=== PATIENT | female | born 2000 | race Caucasian/White ===

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

== ENCOUNTER 2019-08-10 14:43 | Emergency (ER) | payer MEDICAID, OTHER ==
[2019-08-10 14:57] VITALS: BP 133/77
[2019-08-10] MEDS ORDERED: LORazepam TAB(*) 1 MG PO ONE ×3 (15:16→15:30)
[2019-08-10] MEDS ORDERED: diPHENhydraMINE PO* 25 MG PO ONE (15:20)
[2019-08-10] MEDS ORDERED: LORazepam TAB(*) 0.5 MG PO ONE (15:20)
[2019-08-10] MEDS ORDERED: predniSONE TAB* 20 MG PO ONE (15:52)
--- NOTE | 2019-08-10 16:18 | UC ---
Allergic Reaction HPI - HPI Summary HPI Summary: Pt presents with c/o of possible allergic reaction. Pt reports that she was helping with pony rides at home when she first noticed that she had a scratchy throat, chest tightening, and feeling that she had difficulty breathing. Pt denies hx of anaphylaxis to any known allergen. Pt has not ingesting any thing or exposed to any known allergen at time of "allergic reaction". - History of Current Complaint Chief Complaint: UCAllergicReaction Stated Complaint: POSSIBLE ALLERGIC REACTION Time Seen by Provider: 08/10/19 15:13 Hx Obtained From: Patient Hx Last Menstrual Period: 07/12/19 ?: No Onset/Duration: Sudden Onset, Still Present Severity Initially: Mild Severity Currently: Moderate Pain Intensity: 0 Location: Diffuse - upper chest Character: Pruritus, Hives Alleviating Factor(s): Nothing Associated Signs And Symptoms: Positive: Chest Pain, Difficulty Breathing, Rash , Throat Tightening - Related Hx Possible Reaction To: Unknown - Allergies/Home Medications Allergies/Adverse Reactions: Allergies Allergy/AdvReac Type Severity Reaction Status Date / Time seasonal Allergy Congestion Uncoded 08/10/19 14:50 Home Medications: Home Medications Cyclobenzaprine HCl 1 tab PO TID PRN 08/10/19 [History Confirmed 08/10/19] Escitalopram * [Lexapro *] 1 tab PO DAILY 08/10/19 [History Confirmed 08/10/19] Naproxen [Naproxen 500 mg tab] 1 tab PO BID PRN 08/10/19 [History Confirmed 04/21] PMH/Surg Hx/FS Hx/Imm Hx Previously Healthy: Yes Psychological History: Anxiety - Pt was reecntly diagnosed with anxiety. Does not have nay medication for anxiety, Depression - Surgical History Surgical History: Yes Surgery Procedure, Year, and Place: Buttock Debridement s/p Brown Recluse Bite - Family History Known Family History: Positive: Cardiac Disease Negative: Hypertension - Social History Occupation: Unemployed Lives: With Family Alcohol Use: None Substance Use Type: None Smoking Status (MU): Never Smoked Tobacco Have You Smoked in the Last Year: No Household Exposure Type: Cigarettes - Immunization History Most Recent Tetanus Shot: >18 Vaccination Up to Date: Yes Review of Systems All Other Systems Reviewed And Are Negative: Yes Constitutional: Positive: Negative Skin: Positive: Rash - urticaria Eyes: Positive: Negative ENT: Positive: Other - throat tightening, itchy throat Respiratory: Positive: Shortness Of Breath, Cough Cardiovascular: Positive: Chest Pain Gastrointestinal: Positive: Negative Genitourinary: Positive: Negative Motor: Positive: Negative Neurovascular: Positive: Negative Musculoskeletal: Positive: Negative Neurological: Positive: Negative Psychological: Positive: Negative Is Patient Immunocompromised?: No Physical Exam Triage Information Reviewed: Yes Appearance: Pain Distress, Other: - anxious, tearful, confluent erythematous skin anterior chest, not raised or hive like, flat but pt c/o of feeling hot and itchy. Vital Signs: Initial Vital Signs Temp 98.4 F 08/10/19 14:51 Pulse 98 08/10/19 14:51 Resp 16 08/10/19 14:51 BP 133/77 08/10/19 14:51 Pulse Ox 100 08/10/19 14:51 Vital Signs Reviewed: Yes Eye Exam: Normal Eyes: Positive: Other: - no angioedema ENT Exam: Other - no lip swelling, no generalized facila swelling airway, open and patent. Dental Exam: Normal Neck exam: Normal Neck: Positive: Supple Respiratory Exam: Normal Respiratory: Positive: Lungs clear, Normal breath sounds, No respiratory distress Cardiovascular: Positive: Tachycardia Musculoskeletal Exam: Normal Neurological Exam: Normal Psychological Exam: Normal Skin Exam: Other - conluent, erythematous skin on upper anterior chest wall, "blotchy" skin erythematous, on upper arms and face. Allergic Reaction Course/Dx - Course Course Of Treatment: I discussed with the pt my concern for either anxiety or allergic reaction. Pt left UC without difficulty breathing, no erythematous or pruritic skin, reported that she felt "100%" better. - Differential Dx/Diagnosis Differential Diagnosis/HQI/PQRI: Anaphylaxis, Angioedema Provider Diagnosis: Anxiety, Allergic reaction Discharge ED - Sign-Out/Discharge Documenting (check all that apply): Patient Departure All imaging exams completed and their final reports reviewed: No Studies - Discharge Plan Condition: Stable Disposition: HOME Prescriptions: diphenhydrAMINE HCl [Benadryl] 50 mg PO ONCE PRN #20 capsule PRN Reason: Allergy Symptoms LORazepam [Ativan] 0.5 mg PO Q8H PRN #9 tablet MDD 3 PRN Reason: Anxiety Patient Education Materials: Anxiety (ED), General Allergic Reaction (ED) Referrals[place] [facility] [facility] [place]] - If Needed No Primary Care Phys,NOPCP [Primary Care Provider] - Additional Instructions: Please follow up with your PCP and your mental health provider as soon as possible. - Billing Disposition and Condition Condition: STABLE Disposition: Home - Attestation Statements Provider Attestation: I was available for consult. This patient was seen by the TASHI. The patient was not presented to , seen by or examined by nj -Luis Fernando Mckay MD
== END 2019-08-10 16:53 | disposition home or self-care (01) ==
LOC: UCCORT 14:43
DX: F41.9 Anxiety disorder, unspecified (principal); T78.40XA Allergy, unspecified, initial encounter; L50.9 Urticaria, unspecified; R06.02 Shortness of breath; R07.9 Chest pain, unspecified; R05 Cough; Z91.09 Other allergy status, other than to drugs and biological substances; X58.XXXA Exposure to other specified factors, initial encounter; Y92.9 Unspecified place or not applicable
CPT/HCPCS: 99213; A9270-GY; G0463; J7512